=== PATIENT | male | born 1960 | race Hispanic/Latino ===

== ENCOUNTER 2022-07-27 11:49 | Emergency (ER) | payer SELFPAY ==
[~2022-07-27] VITALS: Ht 167.6 cm; Wt 88.5 kg
[2022-07-27 11:50] VITALS: O2SAT 98
[2022-07-27] MEDS ORDERED: METHOCARBAMOL750 MG PO (12:09)
== END 2022-07-27 12:21 | disposition home or self-care (01) ==
LOC: ER 11:58
DX: M25.512 Pain in left shoulder (principal); X58.XXXA Exposure to other specified factors, initial encounter; Y92.89 Other specified places as the place of occurrence of the external cause
CPT/HCPCS: 99283